=== PATIENT | male | born 1965 | race Caucasian/White ===

== ENCOUNTER 2023-08-15 20:27 | Emergency (ER) | payer BC, SELFPAY ==
[2023-08-15] VITALS (9 sets, daily range): BP systolic 107–172; BP diastolic 72–94; PULSE 59–69; RESP 18; TEMP 36.8; O2SAT 94–97; BMI 37.6
--- NOTE | 2023-08-15 20:30 | ED_ITS ---
HPI - General Adult General Time Seen by Provider: 20:30 Date Seen: 08/15/23 Chief complaint: Urogenital Problems, Male Stated complaint: Side pain, unable to pee Time Seen by Provider: 08/15/23 20:28 Source: patient, RN notes reviewed and old records reviewed Mode of arrival: ambulatory Limitations: no limitations History of Present Illness HPI narrative: 58-year-old male who comes in today with flank pain and urinary concerns. Notes left-sided flank pain and nausea starting last night and then difficulty with urination this evening. He feels like he needs to urinate but is not able to go, does not have any suprapubic pain. Did have 4 bowel movements today, no blood in the stools. Denies abdominal pain. Denies chest pain or shortness of breath. Denies fevers or chills. Related Data Home Medications Medication Instructions Recorded Confirmed atorvastatin 40 mg tablet 40 mg PO DAILY 08/15/23 08/15/23 azelastine 137 mcg (0.1 %) nasal 1 spray intranasal BID 08/15/23 08/15/23 spray aerosol cetirizine .ROUTE 08/15/23 folic acid 1 mg tablet 1 mg PO QAM 08/15/23 08/15/23 levothyroxine 100 mcg tablet 100 mcg PO DAILY 08/15/23 08/15/23 lisinopril 20 mg tablet 20 mg PO DAILY 08/15/23 08/15/23 methotrexate sodium 2.5 mg tablet 12.5 mg PO 08/15/23 nystatin 100,000 unit/gram topical 1 topical 3XD 08/15/23 powder (Nystop) upadacitinib 15 mg tablet,extended 15 mg PO DAILY 08/15/23 08/15/23 release 24 hr (Rinvoq) Previous Rx's Medication Instructions Recorded cefdinir 300 mg capsule 300 mg PO BID 5 days #10 caps 08/15/23 dimenhydrinate 50 mg chewable 50 mg PO Q4-6H PRN #20 tabs 08/15/23 tablet Allergies Allergy/AdvReac Type Severity Reaction Status Date / Time No Known Drug Allergies Allergy Verified 08/15/23 20:35 Review of Systems Status of ROS: Reports: 10 or more systems reviewed and unremarkable except as noted in History and below PFSH PFSH Social History Smoking Status: Never smoker Do you use any of these nicotine containing products: None Second hand tobacco smoke exposure: No How often do you have a drink containing alcohol: 4 or more times a week How many standard drinks containing alcohol do you have on a typical day: 1 or 2 AUDIT-C Alcohol total score: 4 Non-prescribed substance use: denies use Exam Narrative: Exam Narrative: General: Well-developed and well-nourished, no acute distress Head: Atraumatic and normocephalic Eyes: Pupils are equal reactive, extraocular motions intact, conjunctiva clear ENT: External nose and ears are normal, posterior pharynx without erythema or exudate Neck: No midline cervical tenderness, full spontaneous range of motion the neck, trachea midline, no adenopathy Heart: Regular rate and rhythm no murmurs or thrills Lungs: Clear to auscultation bilaterally without wheezes or crackles Abdomen: Soft, nontender, nondistended with active bowel sounds. Left CVA tenderness Musculoskeletal: No tenderness, deformity, or edema Neurologic: Awake, alert, and oriented x3, no gross focal neurologic deficits, cranial nerves intact as tested Psych: Mood and affect are appropriate Skin: No rashes Const: Vital Signs, click to edit/add: Vital Signs - 24 hr 08/15/23 20:30 08/15/23 21:23 08/15/23 21:30 Temperature 98.3 F Pulse Rate 61 60 Pulse Rate [Pulse Oximeter] 61 Respiratory Rate 18 Blood Pressure Blood Pressure [Ri ght Upper Arm] 172/94 H Pulse Oximetry 97 96 94 Oxygen Delivery Me thod Room Air 08/15/23 21:31 Temperature Pulse Rate 59 L Pulse Rate [Pulse Oximeter] Respiratory Rate 18 Blood Pressure 107/72 Blood Pressure [Ri ght Upper Arm] Pulse Oximetry 94 Oxygen Delivery Me thod Room Air Course Course ED Course: Patient seen and examined, prior records reviewed. Patient presents today with left flank pain and difficulty with urination. No hematuria. Does have some nausea with no vomiting. On exam, vital is stable, no tachycardia or fever, no abdominal pain or tenderness and no suprapubic tenderness. Symptoms are most consistent with renal colic and ureteral stone, urinary symptoms either from hematuria or stone lodged in the bladder wall. Bladder scan at bedside reveals empty bladder. Labs are ordered, Toradol and Zofran for symptom management. Patient does have a history of rheumatoid arthritis is on methotrexate. Reevaluation(s) Time of Reevaluation #1: 21:18 Reevaluation #1: Labs ordered and independently interpreted by me demonstrate mild leukopenia. CT scan independently interpreted by me with mild left hydroureter and some straining around the mid to distal ureter on the left as well as some perinephric stranding, no definite ureteral stone, bladder is decompressed. Time of Reevaluation #2: 21:28 Reevaluation #2: Reviewed radiology interpretation of CT scan which demonstrates mild infiltration of the perinephric fat bilaterally, no evidence for obstruction, bladder is decompressed. Urinalysis independently interpreted by me with trace blood but no evidence for infection with negative nitrate, negative leukocyte esterase, no white cells and few bacteria. However, given findings on CT scan along with symptoms and patient is immune compromised state, will be started on antibiotics pending urine culture. Basic panel is still pending. Time of Reevaluation #3: 21:45 Reevaluation #3: Basic panel independently interpreted by me with normal creatinine, and normal sodium and normal potassium. Patient will be started on Omnicef pending urine culture and discharged. Vital Signs Vital signs: Initial Vital Signs Temperature 98.3 F 08/15/23 20:30 Temperature Source Temporal Artery Scan 08/15/23 20:30 Pulse Rate 61 08/15/23 20:30 Respiratory Rate 18 08/15/23 20:30 Blood Pressure 172/94 H 08/15/23 20:30 Blood Pressure Mean 120 H 08/15/23 20:30 Blood Pressure Position Sitting 08/15/23 20:30 Pulse Oximetry 97 08/15/23 20:30 Oxygen Delivery Method Room Air 08/15/23 20:30 Vital Signs Temperature 98.3 F 08/15/23 20:30 Pulse Rate 61 08/15/23 20:30 Respiratory Rate 18 08/15/23 20:30 Blood Pressure 172/94 H 08/15/23 20:30 Pulse Oximetry 97 08/15/23 20:30 Oxygen Delivery Method Room Air 08/15/23 20:30 Temperature 98.3 F 08/15/23 20:30 Pulse Rate 59 L 08/15/23 21:31 Respiratory Rate 18 08/15/23 21:31 Blood Pressure 107/72 08/15/23 21:31 Pulse Oximetry 94 08/15/23 21:31 Oxygen Delivery Method Room Air 08/15/23 21:31 Medications Administered Medications: Generic Name Dose Route Start Last Admin Trade Name Mike PRN Reason Stop Dose Admin Ketorolac Tromethamine 15 mg 08/15/23 20:53 08/15/23 21:08 Ketorolac 15 Mg/Ml Inj IVP 08/15/23 20:54 15 mg ONCE ONE Administration Ondansetron HCl 4 mg 08/15/23 21:10 08/15/23 21:14 Ondansetron 2 Mg/Ml Inj IVP 08/15/23 21:11 4 mg ONCE ONE Administration Medical Decision Making Medical Records Medical records reviewed: Yes I reviewed the patient's medical records Lab Data Lab results reviewed: Yes I reviewed the patient's lab results Labs: Lab Results 08/15/23 08/15/23 Range/Units 20:40 20:55 WBC 4.17 L (4.50-11.00) K/uL RBC 4.47 (4.30-5.90) m/uL Hgb 14.3 (13.5-17.5) gm/dL Hct 41.6 (37.0-53.0) % MCV 93 (80-100) fL MCH 32 (26-34) pg MCHC 34 (32-36) gm/dL RDW Coeff of Nevaeh 12.9 (11.5-15.5) % Plt Count 230 (140-440) K/uL Neut % (Auto) 53.0 (42.0-72.0) % Lymph % (Auto) 33.8 (20-44) % [place] % (Auto) 11.0 (0.0-11.0) % Eos % (Auto) 1.0 (0.0-7.0) % Baso % (Auto) 0.2 (0.0-3.0) % Neut # (Auto) 2.20 (1.7-7.0) K/uL Lymph # (Auto) 1.40 (0.90-2.90) K/uL [place] # (Auto) 0.50 (0.00-0.90) K/UL Eos # (Auto) 0.00 (0.00-0.50) K/uL Baso # (Auto) 0.00 (0.00-0.30) K/uL Abs Immat Gran (auto) 0.00 (0.00-0.30) K/uL Imm/Tot Granulo (auto) 1.0 % Sodium 140 (135-149) mmol/L Potassium 3.7 (3.6-5.1) mmol/L Chloride 106 (96-114) mmol/L Carbon Dioxide 28 (20-32) mmol/L Anion Gap 6 L (7-15) mEq/L BUN 25 (7-30) mg/dL Creatinine 1.1 (0.5-1.5) mg/dL Estimated Creat Clear 78.38 Estimated GFR 77 ml/min Glucose 122 H (60-115) mg/dL Calcium 9.1 (8.4-10.6) mg/dL Urine Color Yellow (Yellow) Urine Appearance Clear (Clear) Urine pH 6.5 (5.0-8.5) Ur Specific [place] 1.025 (1.000-1.030) Urine Protein 1+ A (Negative) Urine Glucose (UA) Negative (Negative) Urine Ketones Negative (Negative) Urine Blood 1+ A (Negative) Urine Nitrite Negative (Negative) Urine Bilirubin Negative (Negative) Urine Urobilinogen 1.0 (0.2-1.0) Ur Leukocyte Esterase Negative (Negative) Urine RBC 2-5 A (0-2) Urine WBC 0-2 (0-5) Ur Squamous Epith Cells None (None-Few) Urine Bacteria Few A (None) Discharge Plan Discharge Clinical Impression: Acute left flank pain, Microscopic hematuria Patient Disposition: Home, Self-Care Condition: Stable Instructions: Hematuria (ED), Flank Pain (ED) Additional Instructions: No definite cause of your symptoms today's found. There is a trace amount of blood in the urine and some mild inflammation around the kidneys which could be from recently passed kidney stone but also could be due to mild early infection. Antibiotics will be started urine culture is being performed. Take Tylenol or ibuprofen as needed for pain, as well as Pyridium for urinary discomfort. This will turn your urine orange. Follow-up with your primary care doctor this week Activity Level: No Restrictions Discharge Diet: Regular Prescriptions: New cefdinir 300 mg capsule 300 mg PO BID 5 Days Qty: 10 0RF dimenhydrinate 50 mg tablet,chewable 50 mg PO Q4-6H PRNQty: 20 0RF No Action atorvastatin 40 mg tablet 40 mg PO DAILY lisinopril 20 mg tablet 20 mg PO DAILY levothyroxine 100 mcg tablet 100 mcg PO DAILY methotrexate sodium 2.5 mg tablet 12.5 mg PO folic acid 1 mg tablet 1 mg PO QAM nystatin [Nystop] 100,000 unit/gram powder 1 topical 3XD azelastine 137 mcg (0.1 %) aerosol,spray 1 spray INTRANASAL BID Rinvoq 15 mg tablet extended release 24 hr 15 mg PO DAILY cetirizine [Zyrtec] .ROUTE Follow Up/Referrals: Dinorah Orosco, DAVID, COLLEGE SPORTS ASSISTANT [Primary Care Provider] - Stand Alone Forms: [facility] Info Instructions
--- NOTE | 2023-08-15 20:53 | CT_ITS ---
Patient: MIA BARRIENTOS Facility:?[facility] Patient ID:?[id number] Site Patient ID:?[id number]. Site :?[id number] Study:?CT-Abdomen/Pelvis W/O-08/15/2023 9:09:03 PM Ordering Physician:LAZARO Final Report: INDICATION: Left flank pain TECHNIQUE: CT Abdomen and pelvis without i.v. contrast. Coronal and sagittal reformats were obtained. COMPARISON: None FINDINGS: Lower chest: Unremarkable. Liver: Unremarkable. Spleen: Unremarkable. Pancreas: Unremarkable. Gallbladder: Unremarkable. Kidney: Mild nonspecific infiltration of the perinephric fat is noted bilaterally. Adrenal: Unremarkable. Bowel: Unremarkable. The appendix is normal in appearance and size. A fat containing umbilical hernia is noted. Vascular: Unremarkable. Lymph: Unremarkable. Peritoneum: Unremarkable. No pneumoperitoneum is seen. No significant ascites is noted. Pelvis: Unremarkable. Soft tissue: Unremarkable. Bone: Bilateral chronic pars defects of L5 noted with no significant anterolisthesis of L5-S1 noted. IMPRESSION: 1. Mild nonspecific infiltration of the perinephric fat is noted bilaterally. Correlation with urinalysis is recommended to exclude pyelonephritis. Dictated by Cory Jin MD @ 08/15/2023 9:22:56 PM Please note that all CT scans at this facility use dose modulation, iterative reconstruction, and/or weight-based dosing when appropriate to reduce radiation dose to as low as reasonably achievable. Dictated by: Cory Jin MD @ 08/15/2023 21:27:51 Signed by:?Cory Jin MD @08/15/2023 9:27:51 PM (Electronic Signature)
[2023-08-15 21:07] LABS: Basophils Percent Auto 0.2 % (0.0-3.0); Hematocrit 41.6 % (37.0-53.0); Hemoglobin* 14.3 gm/dL (13.5-17.5); Lymphocytes Percent Auto 33.8 % (20-44); Mean Corpuscular HGB Conc 34 gm/dL (32-36); Mean Corpuscular Hemoglobin 32 pg (26-34); Mean Corpuscular Volume 93 fL (80-100); Platelet Count* 230 K/uL (140-440); RDW Coefficient of Variation % 12.9 % (11.5-15.5); Red Blood Count 4.47 m/uL (4.30-5.90); White Blood Count* 4.17 K/uL (4.50-11.00)
[2023-08-15 21:07] LABS: Appearance Urine Clear (Clear); Bilirubin Urine Negative (Negative); Blood Urine 1+ (Negative); Color Urine Yellow (Yellow); Glucose Urine Negative (Negative); Ketones Urine Negative (Negative); Leukocyte Esterase Urine Negative (Negative); Nitrite Urine Negative (Negative); Protein Urine 1+ (Negative); Specific Gravity Urine 1.025 (1.000-1.030); pH Urine 6.5 (5.0-8.5)
[2023-08-15] MEDS: KETOROLAC 15 MG/ML inj IVP (21:08)
[2023-08-15 21:10] LABS: Slide Review Reflex No
[2023-08-15] MEDS: ONDANSETRON 2 MG/ML inj 4 MG IVP (21:14)
[2023-08-15 21:24] LABS: Bacteria Urine Few; WBC Urine 0-2 (0-5)
[2023-08-15 21:26] LABS: Chloride* 106 mmol/L (96-114); Sodium* 140 mmol/L (135-149)
[2023-08-15 21:27] LABS: Potassium* 3.7 mmol/L (3.6-5.1)
[2023-08-15 21:29] LABS: Anion Gap 6 mEq/L (7-15); Carbon Dioxide* 28 mmol/L (20-32); Creatinine* 1.1 mg/dL (0.5-1.5); Est. Creatinine Clearance* 78.38; Estimated Glomerular Filt Rate 77 ml/min
[2023-08-15 21:30] LABS: Blood Urea Nitrogen* 25 mg/dL (7-30); Calcium* 9.1 mg/dL (8.4-10.6); Glucose* 122 mg/dL (60-115)
--- OUTSIDE RECORDS SUMMARY | 2023-08-15 21:31 | XMS_ITS | Clinical Summary ---
Author Name Unknown Organization [facility] Address [place], [place] [address] Care Team Providers Care Supervisor Rubber Covering Name Role Phone Dinorah Orosco NP Primary Care Provider [phone] Allergies No known active allergies Medications Medication Sig Dispensed Refills Start Date End Date Status cetirizine (ZYRTEC) 10 mg tabletIndications:Env ironmental allergies TAKE 1 TABLET(10 MG) BY MOUTH EVERY DAY 90 Tablet 2 04/30/2022 Active Rinvoq 15 mg tablet 08/18/2022 Activ e folic acid 1 mg tablet Take 1 mg by mouth every morning. 07/18/2022 Active methotrexate (RHEUMATREX) 2.5 mg tablet 08/11/2022 Active CPAPIndications:Obstr uctive sleep apnea on CPAP CPAP machine for home use at pressure 5-15 cmw, nasal mask x1/3month with nasal cushion x2/mo 1 Each 11 09/01/2022 Active levothyroxine (SYNTHROID) 100 mcg tabletIndications:Hyp othyroidism, unspecified type Take 1 Tablet (100 mcg) by mouth before breakfast. 100 Tablet 3 02/09/2023 Active atorvastatin (LIPITOR) 40 mg tabletIndications:Cor onary artery disease involving [place] heart without angina pectoris, unspecified vessel or lesion type Take 1 Tablet (40 mg) by mouth at bedtime. 100 Tablet 3 02/09/2023 Active azelastine 137 mcg/actuation (ASTELIN) nasal sprayIndications:Post -nasal drip Inhale 1 [place] into affected nostril(s) two times daily. 30 mL 11 02/09/2023 Active nystatin powder (MYCOSTATIN) powderIndications:[facility] k itch Apply 1 Strip topically to affected area(s) three times daily. 60 g 11 02/09/2023 Active lisinopriL (PRINIVIL; ZESTRIL) 20 mg tabletIndications:Ess ential hypertension Take 1 Tablet (20 mg) by mouth once daily. 100 Tablet 1 05/05/2023 Active cyclobenzaprine (FLEXERIL) 10 mg tabletIndications:Lum barrel filler pain with radiculopathy affecting right lower extremity Take 1 Tablet (10 mg) by mouth 3 times daily if needed for Muscle Spasm. 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 Overview: B 4th Resolved Problems Problem Noted Date Diagnosed Date Resolved Date H/O vasectomy 09/29/2015 07/21/2017 Immunizations Name Administration Dates Next Due Influenza, IIV3 (Age 6-35 mos) 03/22/2013,2011 Influenza, IIV4 02/09/2023, 2,01/14/2021, 0,03/16/2018 Td (Age >=7 Years) 04/16/1999,02/22/1996 Tdap 03/04/2022,01/29/2012 Zoster (Shingrix-RZV, recombinant) 09/25/2020, Family History Medical History Relation Name Comments Thyroid Disease Daughter 2 Hypertension Father Other Father morbid obesity Heart Disease Mother Hypertension Mother Thyroid Disease Mother Relation Name Status Comments Daughter 1 Alive Daughter 2 Father Alive Mother Alive Social History Tobacco Use Types Packs/Day Years Used Date Smoking Tobacco: Former Cigarettes 0.5 19 1 981 - 2000 Smokeless Tobacco: Never Tobacco Cessation:Counseling Given: Not Answered Alcohol Use Standard Drinks/Week Comments Yes 0 (1 standard drink = 0.6 oz pur e alcohol) 3 beers per week PHQ-2 Answer Date Recorded PHQ-2 TOTAL SCORE 0 02/09/2023 Social Connections Answer Date Recorded Frequency of Communication with Friends and Fami ly 0 05/05/2023 Financial Resource Strain Answer Date R ecorded Difficulty of Paying Living Expenses 3 05/05/2023 Difficulty of Paying Living Expenses Not on file 05/05/2023 Food Insecurity Answer Date Recorded Worried About Running Out of Food in the Last Ye ar 1 05/05/2023 Transportation Needs Answer Date Record ed Lack of Transportation (Medical) 1 05/05/2023 Housing Stability Answer Date Recorded Unable to Pay for Housing in the Last Year 1 05/05/2023 Sex and Gender Information Value Date Recorded Sex Assigned at Not on file Gender Identity Not on file Sexual Orientation Not on file Obstetrics History Last Filed Vital Signs Vital Sign Reading Time Taken Comments Blood Pressure 122/78 05/05/2023 7:39 AM CONVERSION DEVELOPER Pulse 56 05/05/2023 7:39 AM CONVERSION DEVELOPER Temperature 36.5 ??C (97.7 ??F) 10/25/2020 1 1:38 AM CDT Respiratory Rate 15 01/14/2021 3:26 PM CDT Oxygen Saturation 95% 05/05/2023 7:39 AM CONVERSION DEVELOPER Inhaled Oxygen Concentration - - Weight 127.1 kg (280 lb 1.6 oz) 05/05/2023 7:39 AM CONVERSION DEVELOPER Height 182 cm (5' 11.65) 02/09/2023 11 :21 AM CONVERSION DEVELOPER Body Mass Index 38.36 02/09/2023 11:21 AM CONVERSION DEVELOPER Plan of Treatment Health Maintenance Due Date Last Done Comments COVID-19 vaccine series ( season) 2022 05/03/2021, 07/26/2020, 07/05/2020 Influenza for age 50-64 12/05/2023 02/10/20, 03/04/2022, 01/14/2021, Additional history exists BMI (ht and wt on same day) for age 18+ 02/10/2024 02/09/2023, 09/01/2022, 03/26/2022, Additional history exists Depression screening for age 12+ 02/10/2024 02/09/2023, 03/04/2022, 10/25/2020, Additional history exists Fecal testing sDNA-FIT (Cologuard) for age 45-75 03/16/2025 03/16/2022 Lipids for age 45-75 02/10/2028 02/09/2023, 10/16/2021, 04/25/2020, Additional history exists Tetanus booster 03/04/2032 03/04/2022, 01/04, 01/29/2012, Additional history exists HIV for age 15-65 02/09/2043 Postponed from 1978 (Patient discretion) Zoster (shingles) series for age 50+ Completed 09/25/2020, 04/25/2020 Hepatitis C screening for age 18-79 Completed 01/14/2021 Tdap Completed 03/04/2022, 01/04, 01/29/2012 Pneumococcal series for age 6-64 Aged Out No longer eligible based on patient's age to complete this topic Procedures Procedure Name Priority Date/Time Associated Diagnosis Comments LIPID PANEL W REFLEX MEASURED LDL Routine 02/09/2023 12:03 PM CONVERSION DEVELOPER Hypothyroidism, unspecified type SDNA-FIT EXTERNAL (COLOGUARD) Routine 03/16/2022 7:05 AM CONVERSION DEVELOPER Screening for colon cancer ANTI HCV Routine 01/14/2021 4:10 PM CDT Need for hepatitis C screening test from Last 3 Months or Most Recently Relevant to Health Maintenance Results * (ABNORMAL) LIPID PANEL W REFLEX MEASURED LDL (02/09/2023 12:03 PM CONVERSION DEVELOPER) CHOLESTEROL,TOTAL 159 100 - 199 mg/dL 02/09/2023 4:52 PM CONVERSION DEVELOPER [facility] Comment: Cholesterol, Total Reference Ranges Desirable <200 mg/dL Borderline 200-239 mg/dL High >=240 mg/dL TRIGLYCERIDES 138 <150 mg/dL 02/09/2023 4:52 PM CONVERSION DEVELOPER [facility] HDL CHOLESTEROL 38(L) >40 mg/dL 4:52 PM CONVERSION DEVELOPER [facility] NON-HDL CHOLESTEROL 121 <145 mg/dl 02/09/2023 4:52 PM CONVERSION DEVELOPER [facility] CHOL/HDL RATIO 4.18 <4.50 02/09/2023 4:52 PM CONVERSION DEVELOPER [facility] LDL CHOLESTEROL 93 <=130 mg/dL 02/09/2023 4:52 PM CONVERSION DEVELOPER [facility] VLDL CHOLESTEROL 28 <=30 mg/dL 02/09/2023 4:52 PM CONVERSION DEVELOPER [facility] PROVIDER ORDERED STATUS RANDOM 02/09/2023 4:52 PM CONVERSION DEVELOPER [facility] Blood BLOOD SPECIMEN / Unknown Venipuncture / Unknown 02/09/2023 12:03 PM CONVERSION DEVELOPER 02/09/2023 12:03 PM CONVERSION DEVELOPER Dinorah Orosco NP CHEMISTRY [facility] [address] [place] [address], * SDNA-FIT EXTERNAL (COLOGUARD) (03/16/2022 7:05 AM CONVERSION DEVELOPER) NONINV COLON CA DNA+OCC BLD SCRN STL-IMP Negative Negative 03/23/2022 8:37 AM CONVERSION DEVELOPER [facility] (CLIA #:[id number]) Comment: NEGATIVE TEST RESULT. A negative Cologuard result indicates a low likelihood that a colorectal cancer (CRC) or advanced adenoma (adenomatous polyps with more advanced pre-malignant features) ??is present. The chance that a person with a negative Cologuard test has a colorectal cancer is less than 1 in 1500 (negative predictive value >99.9%) or has an ??advanced adenoma is less than ??5.3% (negative predictive value 94.7%). These data are based on a prospective cross-sectional study of 10,000 individuals at average risk for colorectal cancer who were screened with both Cologuard and colonoscopy. (Humza Ulloa al, N Engl J Med 2014;370(14):1286- 1297) The normal value (reference range) for this assay is negative. COLOGUARD RE-SCREENING RECOMMENDATION: Periodic colorectal cancer screening is an important part of preventive healthcare for asymptomatic individuals at average risk for colorectal cancer. ??Following a negative Cologuard result, the [place] [employer] and U.S. Multi-Society Task Force screening guidelines recommend a Cologuard re-screening interval of 3 years. References: [place] [employer] Guideline for Colorectal Cancer Screening: https://www.cancer.org/cancer/lueuz-lfjolq-wslsrb/lcbitkunx-mldthrgrs-poyjivf/ac s-rec ommendations.html.; Brandon CASEY, Danny LORA, Jorge Luis KRAMER, Colorectal Cancer Screening: Recommendations for Physicians and Patients from the U.S. Multi-Society Task Force on Colorectal Cancer Screening , Am J Gastroenterology 2017; 112:4169-4370. TEST DESCRIPTION: Composite algorithmic analysis of stool DNA-biomarkers with hemoglobin immunoassay. ?? Quantitative values of individual biomarkers are not reportable and are not associated with individual biomarker result reference ranges. Cologuard is intended for colorectal cancer screening of adults of either sex, 45 years or older, who are at average-risk for colorectal cancer (CRC). Cologuard has been approved for use by the U.S. FDA. The performance of Cologuard was established in a cross sectional study of average-risk adults aged 50-84. Cologuard performance in patients ages 45 to 49 years was estimated by sub-group analysis of near-age groups. Colonoscopies performed for a positive result may find as the most clinically significant lesion: colorectal cancer [4.0%], advanced adenoma (including sessile serrated polyps greater than or equal to 1cm diameter) [20%] or non- advanced adenoma [31%]; or no colorectal neoplasia [45%]. These estimates are derived from a prospective cross-sectional screening study of 10,000 individuals at average risk for colorectal cancer who were screened with both Cologuard and colonoscopy. (Humza Elam. et al, N Engl J Med 2014;370(14):7907-2825.) Cologuard may produce a false negative or false positive result (no colorectal cancer or precancerous polyp present at colonoscopy follow up). A negative Cologuard test result does not guarantee the absence of CRC or advanced adenoma (pre-cancer). The current Cologuard screening interval is every 3 years. ([place] [employer] and U.S. Multi-Society Task Force). Cologuard performance data in a 10,000 patient pivotal study using colonoscopy as the reference method can be accessed at the following location: www.[employer]/results. Additional description of the Cologuard test process, warnings and precautions can be found at www.cologuard.com. Stool specimen (specimen) (Rectum) 03/16/2022 7:05 AM CONVERSION DEVELOPER 03/17/2022 2:23 PM CONVERSION DEVELOPER Dinorah Orosco PHYSICIAN OFFICE SPECIALIST [facility] (CLIA #:[id number]) [address] [place] [address], * ANTI HCV (01/14/2021 4:10 PM CDT) HEPATITIS C ANTIBODY Non-React brittany Non-React brittany 01/15/2021 4:28 PM CDT [facility] Comment:Antibodies to HCV no t detected; does not exclude the possibility of exposure to HCV. Blood BLOOD SPECIMEN / Unknown Venipuncture / Unknown 01/14/2021 4:10 PM CDT 01/14/2021 4:11 PM CDT Dinorah Orosco PHYSICIAN OFFICE SPECIALIST SEND OUTS Performing Organization Address City/[facility] Co de Phone Number [facility] [address] [place] [address], [place] from Last 3 Months or Most Recently Relevant to Health Maintenance Care Teams Supervisor Rubber Covering Relationship Specialty [place] [address] [place] [address] PCP - General Nurse Practitioner 03/04/22
--- OUTSIDE RECORDS SUMMARY | 2023-08-15 21:31 | XMS_ITS | Continuity of Care Document ---
Author Name Unknown Organization [facility] Address [address] [place] [address] Phone Care Team Providers Care Grievance And Appeals Specialist Name Role Phone Koby Moran MD Unavailable Unavailabl e Allergies, Adverse Reactions, Alerts Substance Reaction Status Criticality No Known Allergies Active No Inform ation Medications Medication Instructions Dosage Effective Dates (start - stop) Status Comments PREDNISONE 2.5MG TABLETS TAKE 1 TABLET BY MOUTH EVERY OTHER DAY - Active FOLIC ACID 1MG TABLETS TAKE 1 TABLET BY MOUTH EVERY MORNING 1 MG - Active ENBREL SURECLICK 50MG/ML SOAJ INJECT THE CONTENTS OF 1 AUTOINJECTOR PEN UNDER THE SKIN ONCE WEEKLY - Active methotrexate sodium 2.5 mg tablet take 5 Tablet by oral route every week 12.5 MG - Active levothyroxine 100 mcg capsule take 1 capsule by oral route every day 100 MCG - Active Procedures Procedure Date Office/Outpatient Visit, Est Routine Venipuncture Rbc Sed Rate, Nonautomated Assay Of Serum Albumin Assay Of Creatinine Transferase (Ast) (Sgot) Alanine Amino (Alt) (Sgpt) CReactive Protein Complete Cbc, Automated Office/Outpatient Visit, Est Routine Venipuncture Assay Of Serum Albumin Assay Of Creatinine Transferase (Ast) (Sgot) Alanine Amino (Alt) (Sgpt) CReactive Protein Complete Cbc, Automated Office/Outpatient Visit, Est Routine Venipuncture Assay Of Serum Albumin Assay Of Creatinine Transferase (Ast) (Sgot) Alanine Amino (Alt) (Sgpt) CReactive Protein Antinuclear Antibodies Complete Cbc, Automated Office/Outpatient Visit, Est Routine Venipuncture Assay Of Serum Albumin Assay Of Creatinine Transferase (Ast) (Sgot) Alanine Amino (Alt) (Sgpt) Complete Cbc, Automated Office/Outpatient Visit, Est Routine Venipuncture Assay Of Serum Albumin Assay Of Creatinine Transferase (Ast) (Sgot) Alanine Amino (Alt) (Sgpt) Tb Test, Cell Immun Measure Complete Cbc, Automated Office/Outpatient Visit, New Routine Venipuncture Specimen Handling Rbc Sed Rate, Nonautomated Assay Of Serum Albumin Assay Of Creatinine Transferase (Ast) (Sgot) Alanine Amino (Alt) (Sgpt) CReactive Protein CCP Antibody Rheumatoid Factor, IGM Rheumatoid Factor, IGG, IGA Complete Cbc WAuto Diff Wbc Advance Directives Directive Yes / No Effective Date File Name No Information Encounters Encounter Description Practice Location Reason(s) For Visit Diagnoses Date Provider Providers Copied on Encounter [facility] , [address], [place], [address], [place] tel:[phone] [facility] No Information 4 Dean Whalen. [address], [address], [place], [address], [place]. tel:[phone] [facility] , [address], [place], [address], [place] tel:[phone] [facility] No Information 3 Deng Kirill. [facility] [address], [place], [address], [place]. tel:[phone] [facility] , [address], [place], [address], [place] tel:[phone] [facility] No Information 3 Deng Kirill. [facility] [address], [place], [address], [place]. tel:[phone] [facility] , [address], [place], [address], [place] tel:[phone] [facility] No Information 3 Deng Kirill. [facility] [address], [place], [address], [place]. tel:[phone] Office/Outpa tient Visit, Est [facility] , [address], [place], [address], [place] tel:[phone] [facility] , Rheumatoid arthritis (chief complaint) Seropositive RAHigh risk medication monitoringMcKenzie County Healthcare System ed liver enzymesDry mouth 2 Deng Kirill. [facility] [address], [place], [address], [place]. tel:[phone] Referring Provider: Kirill Langford, [facility] [address], [place], [address]. tel:[phone] Office/Outpa tient Visit, Est [facility] , [address], [place], [address], [place] tel:[phone] [facility] , Rheumatoid arthritis (chief complaint) Seropositive RAHigh risk medication monitoringCo [facility] ed liver enzymesDry mouth Dec- 2 Deng Roy. [facility] [address], [place], [address], [place]. tel:[phone] Referring Provider: Kirill Langford, [facility] [address], [place], [address]. tel:[phone] Office/Outpa tient Visit, Est [facility] , [address], [place], [address], [place] tel:[phone] [facility] , Rheumatoid arthritis (chief complaint) Seropositive RAHigh risk medication monitoringCo [facility] ed liver enzymesDry mouthArtesia General Hospitalh Andrew- 2 Deng Roy. [facility] [address], [place], [address], [place]. tel:[phone] Referring Provider: Kirill Langford, [facility] [address], [place], [address]. tel:[phone] Office/Outpa tient Visit, Est [facility] , [address], [place], [address], [place] tel:[phone] [facility] , Rheumatoid arthritis (chief complaint) Seropositive RAHigh risk medication monitoringCo [facility] ed liver enzymes 2 Deng Roy. [facility] [address], [place], [address], [place]. tel:[phone] Referring Provider: Kirill Langford, [facility] [address], [place], [address]. tel:[phone] Office/Outpa tient Visit, Est [facility] , [address], [place], [address], [place] tel:[phone] [facility] , Rheumatoid arthritis (chief complaint) High risk medication monitoringCo unselingSerAsc[facility] 2 Deng Roy. [facility] [address], [place], [address], [place]. tel:[phone] Referring Provider: Kirill Langford, [facility] [address], [place], [address]. tel:[phone] Office/Outpa tient Visit, New [facility] , [address], [place], [address], [place] tel:[phone] [facility] , Rheumatoid arthritis (chief complaint) Rheumatoid arthritis, unspecifiedH igh risk medication monitoringCo unseling 1 Deng Roy. [facility] [address], [place], [address], [place]. tel:[phone] Referring Provider: Kirill Langford, [facility] [address], [place], [address]. tel:[phone] Family History Family Member Type Diagnosis Age At Onset Sister Problem rheumatoid arthritis Payers Payer name Insurance type Covered democrat ID Authorhoang gillespie(s) [facility] [id number] Social History Type Description Quantity Date Captured Comments Alcohol Use Details Unknown Caffeine Use Details Unknown Tobacco Use Status No Information Smoking Status No Information Sex Male Chief Complaint And Reason For Visit No Information Reason For Referral Reason For Referral No Information History Of Present Illness Encounter Date Complaint History Of Prese nt Illness Rheumatoid arthritis Rheumatoid arthritis Rheumatoid arthritis Rheumatoid arthritis Rheumatoid arthritis Rheumatoid arthritis Functional Status Date Functional Assessmen t No Information Instructions Date Instruction Additional Infor mation No Information Assessments Type Assessment Date No Information Patient Care Teams Name Effective Dates (start - stop) Status Members No Information
--- OUTSIDE RECORDS SUMMARY | 2023-08-15 21:31 | XMS_ITS | Continuity of Care Document ---
Author Name Unknown Organization [facility] Address [address] [place] [address] Phone Care Team Providers Care Real Estate Job Titles Name Role Phone Corinna Diallo Unavailable Unavailable Allergies, Adverse Reactions, Alerts Substance Reaction Status Criticality No Known Allergies Active No Inform ation Procedures Procedure Date Office/Outpatient Visit,[facility], [facility] 2016 Advance Directives Directive Yes / No Effective Date File Name No Information Encounters Encounter Description Practice Location Reason(s) For Visit Diagnoses Date Provider Providers Copied on Encounter Office/Outpat ient Visit,[place], [facility], [address], [place], [place], [address], [place] tel:[phone] [facility] [place] Spinal stenosis, lumbar regionSpondyloli sthesis, lumbar regionOther intervertebral disc displacement, lumbar regionRadiculopa thy, lumbar region 7 Manish Weinstein. [facility], [address], [place], [address], [place]. tel:[phone] Referring Provider: Zarina Cade, [facility] [address] [place], [address]. tel:[phone] Family History Family Member Type Diagnosis Age At Onset No Information Payers Payer name Insurance type Covered democrat ID Forest gillespie(s) [facility] [id number] [facility] [id number] Social History Type Description Quantity Date Captured Comments Alcohol Use Details Unknown Caffeine Use Details Unknown Tobacco Use Status Never smoked tobacco 2016 Smoking Status Never smoker Non-Smoking Tobacco Use Details : No Details Available : No Details Available Sex Male Vital Signs Date / Time: Height Weight BMI Pulse Rate Blood Pressure Temperature Respiratory Rate Body Surface Area Head Circumference Head Circ. Percentile Wt./Timbo. Percentile BMI percentile Pulse Ox Inhaled Ox 11:35 AM 72.00 in 121.109 kg (267.00 lbs) 36.2 1 kg/m eter (2) 62 /min 142/82 mm[Hg] Chief Complaint And Reason For Visit No Information Reason For Referral Reason For Referral No Information History Of Present Illness Encounter Date Complaint History Of Prese nt Illness No Information Functional Status Date Functional Assessmen t No Information Instructions Date Instruction Additional Infor mation Weight Management Education Rela renzo to Overweight Weight management: I nstructed to return to General Practitioner timeframe: 1 Month. Related to Overweight Assessments Type Assessment Date No Information Patient Care Teams Name Effective Dates (start - stop) Status Members No Information
--- OUTSIDE RECORDS SUMMARY | 2023-08-15 21:32 | XMS_ITS | Continuity of Care Document ---
Author Name Unknown Organization [facility] Address [address] [place] [address] Phone Care Team Providers Care Kaiako Kura Tuarua Name Role Phone Corinna Diallo Unavailable Unavailable Allergies, Adverse Reactions, Alerts Substance Reaction Status Criticality No Known Allergies Active No Inform ation Procedures Procedure Date Office/Outpatient Visit,[facility], [facility] [place] Advance Directives Directive Yes / No Effective Date File Name No Information Encounters Encounter Description Practice Location Reason(s) For Visit Diagnoses Date Provider Providers Copied on Encounter Office/Outpat ient Visit,[place] [facility], [address], [place], [place], [address], [place] tel:[phone] [facility] - [facility] [place] Spinal stenosis, lumbar regionSpondyloli sthesis, lumbar regionOther intervertebral disc displacement, lumbar regionRadiculopa thy, lumbar region 7 Manish Weinstein. [facility], [address], [place], [address], [place]. tel:[phone] Referring Provider: Zarina Cade, [employer] [address] [place], [address]. tel:[phone] Family History Family Member Type Diagnosis Age At Onset No Information Payers Payer name Insurance type Covered constitution party ID Forest gillespie(s) [facility] [id number] [facility] [id number] Social History Type Description Quantity Date Captured [...]
--- OUTSIDE RECORDS SUMMARY | 2023-08-15 21:32 | XMS_ITS | Continuity of Care Document ---
Author Name Unknown Organization [facility] Address [address] [place] [address] Phone Care Team Providers Care Towel Sewer Name Role Phone Koby Moran MD Unavailable [...] [address], [place], [address], [place] tel:[phone] [facility] No Information 4 Dean Whalen. [address], [place], [address], [place]. tel:[phone] [facility] , [address], [place], [address], [place] tel:[phone] [facility] No Information 3 Deng Kirill. [facility] [address], [place], [address], [place]. tel:[phone] [facility] , [address], [place], [address], [place] tel:[phone] [facility] No Information 3 Deng Kirill. [facility] [address], [place], [address], [place]. tel:[phone] [facility] , [address], [place], [address], [place] tel:[phone] [facility] No Information 3 Deng Kirill. [facility] [address], [place], [address], [place]. tel:[phone] Office/Outpa tient Visit, Est [facility] , [address], [place], [address], [place] tel:[phone] [facility] , Rheumatoid arthritis (chief complaint) Seropositive RAHigh risk medication monitoringVeteran's Administration [facility] ed liver enzymesDry mouth 2 Deng Kirill. [facility] [address], [place], [address], [place]. tel:[phone] Referring Provider: Kirill Langford, [facility] [address], [place], [address]. tel:[phone] Office/Outpa tient Visit, Est [facility] , [address], [place], [address], [place] tel:[phone] [facility] , Rheumatoid arthritis (chief complaint) Seropositive RAHigh risk medication monitoringCo [facility] ed liver enzymesDry mouth Dec- 2 Deng Roy. [facility] [address], [place], [address], [place]. tel:[phone] Referring Provider: Kirill Langford, [facility] [address], [place], [address]. tel:[phone] Office/Outpa tient Visit, Est [facility] , [address], [place], [address], [place] tel:[phone] [facility] , Rheumatoid arthritis (chief complaint) Seropositive RAHigh risk medication monitoringCo [facility] ed liver enzymesDry mouthPresbyterian Medical Center-Rio Ranchoh Andrew- 2 Deng Roy. [facility] [address], [place], [address], [place]. tel:[phone] Referring Provider: Kirill Langford, [facility] [address], [place], [address]. tel:[phone] Office/Outpa tient Visit, Est [facility] , [address], [place], [address], [place] tel:[phone] [facility] , Rheumatoid arthritis (chief complaint) Seropositive RAHigh risk medication monitoringCo [facility] ed liver enzymes 2 Deng Roy. [facility] [address], [place], [address], [place]. tel:[phone] Referring Provider: Kirill Langford, [facility] [address], [place], [address]. tel:[phone] Office/Outpa tient Visit, Est [facility] , [address], [place], [address], [place] tel:[phone] [facility] , Rheumatoid arthritis (chief complaint) High risk medication monitoringCo unsel[facility]SerSouth[facility] 2 Deng Roy. [facility] [address], [place], [address], [place]. tel:[phone] Referring Provider: Kirill Langford, [facility] [address], [place], [address]. tel:[phone] Office/Outpa tient Visit, New [facility] , [address], [place], [address], [place] tel:[phone] [facility] , Rheumatoid arthritis (chief complaint) Rheumatoid arthritis, unspecifiedH igh risk medication monitoringCo unseling 1 Deng Roy. [facility] [address], [place], [address], [place]. tel:[phone] Referring Provider: Kirill Langford, [facility] [address], [place], [address]. tel:[phone] Family History Family Member Type Diagnosis Age At Onset Sister Problem rheumatoid arthritis Payers Payer name Insurance type Covered green party ID Authorhoang gillespie(s) [facility] [id number] Social History Type Description Quantity Date Captured [...]
[2023-08-15] MEDS: cefTRIAXone 1 GM in 0.9 % SODIUM CHLORIDE Mini-bag 100 ML IVPB (22:05)
== END 2023-08-15 22:38 | disposition home or self-care (01) ==
PROVIDERS: Emergency Provider Family Medicine; PCP Nurse Practitioner Family
DX: R31.29 Other microscopic hematuria (principal)
CPT/HCPCS: 36415; 51798; 74176; 80048; 81001; 85025; 87086; 96365; 96375; 99284; J0696; J1885; J2405